=== PATIENT | female | born 1995 | race Caucasian/White ===

== ENCOUNTER 2017-03-30 22:30 | Inpatient (IN) | payer OTHER ==
--- NOTE | 2017-03-30 22:43 | EDPHY ---
H & P HPI/ROS: CHIEF COMPLAINT: intentional overdose, intentional self-injury HISTORY OF PRESENT ILLNESS: 21-year-old female arrives via ambulance after roommate called 911 after the patient consumed 6, 0.5 mg Ativan tablets at once approximately 830 p.m. this evening and lacerated her left volar wrist in a suicide attempt. The patient is not on M1 when she arrives. The patient will not provide an answer as to why she did this stating "I just did it ". She states that this was not a suicide attempt will not elaborate further. Does have a history of depression, denies history of hospitalization for suicidal ideation or suicide attempt. REVIEW OF SYSTEMS: A ten point review of systems was performed and is negative with the exception of the items mentioned in the HPI PAST MEDICAL & SURGICAL HISTORY: Depression. SOCIAL HISTORY:denies alcohol or drug use PHYSICAL EXAM (Prior to examination, patient consented to physical exam, hands were washed and my usual and customary physical exam procedures followed) 1) GENERAL: Well-developed, alert and oriented. Appears to be in no acute distress. 2) HEAD: Normocephalic, atraumatic 3) HEENT: Pupils equal, round, reactive to light bilaterally. . 4) NECK: Full range of motion, no meningeal signs. 5) LUNGS: Clear auscultation bilaterally, 6) HEART: Regular rate and rhythm, no murmur, no heave, no gallop. 7) ABDOMEN: No guarding, no rebound, no focal tenderness, 8) MUSCULOSKELETAL: left volar forearm superficial linear abrasion. No signs of infection. Soft compartments. Otherwise Moving all extremities, no focal areas of tenderness, no obvious trauma. No peripheral edema or discoloration. 9) BACK: no obvious trauma, no visual or palpable abnormality. 10) SKIN: No rash, no petechiae. 11) Psychiatric: Patient is oriented X 3, she is withdrawn, tearful, mumbling, under talkative . DIFFERENTIAL DIAGNOSIS: in no particular include but limited to depression, suicidal ideation, homicidal ideation (Meaghan,Art Melanie) Constitutional: Initial Vital Signs Temperature (C) 37 C 03/30/17 23:09 Heart Rate 83 03/30/17 23:09 Respiratory Rate 16 03/30/17 23:09 Blood Pressure 137/86 H 03/30/17 23:09 O2 Sat (%) 99 03/30/17 23:09 O2 Delivery Mode Room Air Allergies/Adverse Reactions: No Known Allergies Allergy (Unverified 03/30/17 23:06) Home Medications: Medication Instructions Recorded Bcp 03/30/17 Lorazepam 03/30/17 Prozac 10 MG (*) 03/30/17 Medical Decision Making ED Course/Re-evaluation: 10:52 p.m.: I had a lengthy discussion with the patient, discussed her concerning behavior this evening, notably intentionally ingesting 6 Ativan tablets, intentionally injuring her left wrist. I think the patient poses an imminent danger to herself and I recommended placement on M1 hold. Discussed this with her and she is in agreement she does feel that she necessitates mental health evaluation this evening. In consultation with Dr Kilpatrick an M1 hold was placed. Midnight: care turned over to Dr. Kilpatrick (Meaghan,Art Melanie) 0233: This patient has been accepted at [address] [place] [address] [facility] hospitalization. Accepted by Dr. Dick. EMTALA form filled out. Appropriate transfer be set up. (Valente Kilpatrick) - Data Points Laboratory Results: Laboratory Results 03/30/17 23:15 03/30/17 23:15 03/30/17 03/30/17 03/30/17 23:15 23:15 23:15 WBC RBC Hgb Hct MCV MCH MCHC RDW Plt Count MPV Neut % (Auto) Lymph % (Auto) [place] % (Auto) Eos % (Auto) Baso % (Auto) Nucleat RBC Rel Count Absolute Neuts (auto) Absolute Lymphs (auto) Absolute Monos (auto) Absolute Eos (auto) Absolute Basos (auto) Absolute Nucleated RBC Immature Gran % Immature Gran # Sodium 143 mEq/L mEq/L (134-144) Potassium 3.8 mEq/L mEq/L (3.5-5.2) Chloride 107 mEq/L mEq/L (97-110) Carbon Dioxide 20 mEq/l L mEq/l (22-31) Anion Gap 16 mEq/L mEq/L (8-16) BUN 10 mg/dL mg/dL (7-23) Creatinine 0.7 mg/dL mg/dL (0.6-1.0) Estimated GFR > 60 Glucose 87 mg/dL mg/dL (70-100) Calcium 9.9 mg/dL mg/dL (8.5-10.4) Beta HCG, Qual NEGATIVE Salicylates < 1.0 mg/dL L mg/dL (2.0-20.0) Urine Opiates Screen NEGATIVE (NEGATIVE) Acetaminophen < 10 mcg/mL L mcg/mL (10-30) Urine Barbiturates NEGATIVE (NEGATIVE) Ur Phencyclidine Scrn NEGATIVE (NEGATIVE) Ur Amphetamine Screen NEGATIVE (NEGATIVE) U Benzodiazepines Scrn NON-NEGATIVE H (NEGATIVE) Urine Cocaine Screen NEGATIVE (NEGATIVE) U Marijuana (THC) Screen NEGATIVE (NEGATIVE) Ethyl Alcohol < 10 mg/dL mg/dL (0-10) 03/30/17 23:15 WBC 8.62 10^3/uL 10^3/uL (3.80-9.50) RBC 4.30 10^6/uL 10^6/uL (4.18-5.33) Hgb 14.3 g/dL g/dL (12.6-16.3) Hct 41.4 % % (38.0-47.0) MCV 96.3 fL fL (81.5-99.8) MCH 33.3 pg pg (27.9-34.1) MCHC 34.5 g/dL g/dL (32.4-36.7) RDW 12.4 % % (11.5-15.2) Plt Count 283 10^3/uL 10^3/uL (150-400) MPV 10.1 fL fL (8.7-11.7) Neut % (Auto) 76.0 % H % (39.3-74.2) Lymph % (Auto) 19.4 % % (15.0-45.0) [place] % (Auto) 3.9 % L % (4.5-13.0) Eos % (Auto) 0.3 % L % (0.6-7.6) Baso % (Auto) 0.3 % % (0.3-1.7) Nucleat RBC Rel Count 0.0 % % (0.0-0.2) Absolute Neuts (auto) 6.54 10^3/uL H 10^3/uL (1.70-6.50) Absolute Lymphs (auto) 1.67 10^3/uL 10^3/uL (1.00-3.00) Absolute Monos (auto) 0.34 10^3/uL 10^3/uL (0.30-0.80) Absolute Eos (auto) 0.03 10^3/uL 10^3/uL (0.03-0.40) Absolute Basos (auto) 0.03 10^3/uL 10^3/uL (0.02-0.10) Absolute Nucleated RBC 0.00 10^3/uL 10^3/uL (0-0.01) Immature Gran % 0.1 % % (0.0-1.1) Immature Gran # 0.01 10^3/uL 10^3/uL (0.00-0.10) Sodium Potassium Chloride Carbon Dioxide Anion Gap BUN Creatinine Estimated GFR Glucose Calcium Beta HCG, Qual Salicylates Urine Opiates Screen Acetaminophen Urine Barbiturates Ur Phencyclidine Scrn Ur Amphetamine Screen U Benzodiazepines Scrn Urine Cocaine Screen U Marijuana (THC) Screen Ethyl Alcohol Departure - Departure
[2017-03-30 23:31] LABS: % IMMATURE GRANULYOCYTES 0.1 % (0.0-1.1); ABSOLUTE IMMATURE GRANULOCYTES 0.01 10^3/uL (0.00-0.10); ADD DIFF? NO; ADD MORPH? NO; ADD SCAN? NO; ATYPICAL LYMPHOCYTE FLAG 30 (0-99); FRAGMENT RBC FLAG 0 (0-99); HEMATOCRIT 41.4 % (38.0-47.0); HEMOGLOBIN 14.3 g/dL (12.6-16.3); LEFT SHIFT FLG 0 (0-99); LIPEMIA HEMOLYSIS FLAG 90 (0-99); MEAN CELL HEMOGLOBIN 33.3 pg (27.9-34.1); MEAN CELL HEMOGLOBIN CONCENTR. 34.5 g/dL (32.4-36.7); MEAN CELL VOLUME 96.3 fL (81.5-99.8); MEAN PLATELET VOLUME 10.1 fL (8.7-11.7); PLATELET CLUMPS FLAG 0 (0-99); PLATELET COUNT 283 10^3/uL (150-400); RED CELL DISTRIBUTION WIDTH 12.4 % (11.5-15.2)
[2017-03-30 23:45] LABS: ANION GAP 16 mEq/L (8-16); CALCIUM 9.9 mg/dL (8.5-10.4); CARBON DIOXIDE 20 mEq/l (22-31); CHLORIDE 107 mEq/L (97-110); CREATININE 0.7 mg/dL (0.6-1.0); ETHANOL SERUM < 10 mg/dL (0-10); GLOMERULAR FILTRATION RATE > 60; GLUCOSE 87 mg/dL (70-100); POTASSIUM 3.8 mEq/L (3.5-5.2); SALICYLATE < 1.0 mg/dL (2.0-20.0); SODIUM 143 mEq/L (134-144)
[2017-03-31] MEDS ORDERED: ACETAMINOPHEN 325 MG TAB PO PRN (02:00)
[2017-03-31] MEDS ORDERED: MAG HYDROX/AL HYDROX/SIMETH 30 ML UDCUP PO PRN (02:00)
[2017-03-31] MEDS ORDERED: MAGNESIUM HYDROXIDE 30 ML UDCUP PO PRN (02:00)
[2017-03-31] MEDS ORDERED: NICOTINE POLACRILEX 2 MG GUM B PRN (02:00)
[2017-03-31 02:32] VITALS: PULSE 88
[2017-03-31 03:46] VITALS: BP 129/81; RESP 14; TEMP 97.5; O2SAT 99
[2017-03-31] MEDS ORDERED: hydrOXYzine HCL 25 MG TAB PO PRN (15:15)
[2017-03-31] MEDS ORDERED: GABAPENTIN 100 MG CAP PO PRN (15:16)
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
--- NOTE | 2017-03-31 18:21 | BCON ---
[f rep st] BEHAVIORAL HEALTH CONSULTATION INTERNAL MEDICINE CONSULTATION DATE OF CONSULTATION: 03/31/2017 REFERRING PHYSICIAN: Ruddy Dick MD REASON FOR REFERRAL: Medical clearance for inpatient behavioral health stay. HISTORY OF PRESENT ILLNESS: This patient came to the emergency department by ambulance after her roommate called 911 because the patient had consumed 6 tablets of 0.5 mg lorazepam, and she lacerated her left wrist. She was evaluated in the emergency department where she denied that this was a suicide attempt. However, she was admitted to Inpatient Behavioral Health for further psychiatric care. She currently is without any acute complaints other than feeling sleepy. PAST MEDICAL HISTORY: 1. Scoliosis. 2. Depression. PAST SURGICAL HISTORY: She has had a tonsillectomy. MEDICATIONS: Prior to admission: 1. Trazodone. 2. control. 3. Lorazepam. 4. Fluoxetine. 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 She is a nonsmoker. She uses occasional alcohol. She lives with a roommate. FAMILY HISTORY: Noncontributory. REVIEW OF SYSTEMS: Other than feeling sleepy, a 10-point review of systems was conducted and was negative. She denies weight loss or loss of appetite or eating disorder. PHYSICAL EXAM: VITAL SIGNS: Blood pressure is 129/81, heart rate is 88, respiratory rate is 14, oxygen saturation is 99% on room air. Temperature is 36.4 degrees centigrade. Her weight is 52.2 kg, for a body mass index of 18.6. GENERAL: This is a thin woman, appears her chronologic age, cooperative and in no acute distress. HEENT: Extraocular movements are intact. Pupils are equal, round, reactive to light. Mucous membranes are moist. Dentition is in good condition. She has an uncrowded airway, Mallampati class 1. NECK: Supple with no thyromegaly. HEART: Regular rate and rhythm with no murmurs, rubs, gallops. LUNGS: Clear to auscultation bilaterally. ABDOMEN: Soft, nontender, nondistended with normoactive bowel sounds. EXTREMITIES: There is no cyanosis, clubbing, or edema. On her left volar wrist, there are multiple very superficial lacerations with no erythema or drainage. NEUROLOGIC: She is alert and oriented x3. Cranial nerves 2-12 are grossly intact. There is no focal weakness. Sensation is intact to light touch. LABORATORY STUDIES: Drawn in the emergency department, CBC was overall within normal limits. She had a slight predominance of absolute neutrophils at 6.54. Serum chemistry revealed a slightly low carbon dioxide at 20; otherwise, renal function and electrolytes were within normal limits. Beta hCG was negative for . Toxicology screen in the serum was negative for salicylates, acetaminophen or ethyl alcohol; and in the urine was non-negative for benzodiazepines but was negative otherwise for substances of abuse. ASSESSMENT/RECOMMENDATIONS: 1. Depression: Pending further evaluation and management per Psychiatry and the mental health team. 2. Intentional overdose. She did not do herself any lasting harm. Would expect that she would have continued somnolence until more of the lorazepam clears from her system. 3. Superficial lacerations. Expect these to heal spontaneously with no further management indicated. I see no medical contraindications to this patient's continued stay on the inpatient behavioral health unit or to any psychiatric medications or procedures. Thank you very much for including me in the care of this patient. Please do not hesitate to contact me or the hospitalist service, should there be need for further medical evaluation. /[id number]/MODL MTDD
[2017-04-01] MEDS ORDERED: FLUoxetine 10 MG CAP PO SCH (09:00)
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
== END 2017-04-01 14:21 | disposition home or self-care (01) | DRG 885 ==
LOC: BBEH 03-31 03:08
PROVIDERS: ADMIT Psychiatry & Neurology Psychiatry
DX: F33.2 Major depressive disorder, recurrent severe without psychotic features (principal); T42.4X2A Poisoning by benzodiazepines, intentional self-harm, initial encounter; S60.812A Abrasion of left wrist, initial encounter; X78.9XXA Intentional self-harm by unspecified sharp object, initial encounter; Y92.9 Unspecified place or not applicable; F40.10 Social phobia, unspecified
CPT/HCPCS: 80305; G0480